=== PATIENT | female | born 1965 | race Caucasian/White ===

== ENCOUNTER 2017-02-23 06:26 | Outpatient (CLI) | payer OTHER ==
[~2017-02-23] VITALS: Ht 167.6 cm; Wt 86.2 kg
[2017-02-23] VITALS (11 sets, daily range): BP systolic 105–125; BP diastolic 72–87
[~2017-02-23 06:26] MED LIST: ASPI-482 PO; ATOR20TA PO; CHOL100013 PO; GLUC100018 PO; METO25TA4 PO; MULT1TAB52 PO
[2017-02-23] MEDS ORDERED: VIT1TABL32 PO (06:56)
[2017-02-23] MEDS ORDERED: CHONDROITIN MSM PO (06:58)
[2017-02-23] MEDS ORDERED: FISH1CAP PO (06:58)
[2017-02-23 07:08] LABS: CALCIUM 8.9 mg/dL (8.5-10.1); CREATININE 0.9 mg/dL (0.6-1.0); POTASSIUM 4.2 mmol/L (3.5-5.1)
[2017-02-23 07:09] LABS: HEMATOCRIT 40.6 % (36.0-47.0); HEMOGLOBIN 13.8 g/dL (12.0-15.5); RED BLOOD COUNT 4.3 x10^6/uL (3.50-5.40); RED CELL DISTRIBUTION WIDTH 13.9 % (11.5-14.5); WHITE BLOOD COUNT 6.1 x10^3/uL (4.0-11.0)
[2017-02-23] MEDS ORDERED: HEPARIN for ARTERIAL LINE 1,500 ML ONE (07:17)
[2017-02-23] MEDS ORDERED: IOHEXOL 300 MG/ML 100ML VIAL. ONE (07:17)
[2017-02-23] MEDS ORDERED: LIDOCAINE 2% 20 ML VIAL. ONE (07:19)
[2017-02-23 07:28] LABS: INR 1.1 (0.8-1.1); PROTHROMBIN TIME PATIENT 13.1 SEC (11.7-14.0)
[2017-02-23] MEDS ORDERED: fentaNYL PF VIAL 100 MCG/2 ML VIAL ONE (07:54)
[2017-02-23] MEDS ORDERED: MIDAZOLAM HCL/PF 2 MG/2 ML VIAL. ONE ×2 (07:55→08:18)
--- NOTE | 2017-02-23 08:07 | PDOC ---
MODERATE SEDATION ASSESSMENT RISKS/ALTERNATIVES Risks/Alternatives Risks and alternatives of this type of sedation and procedure discussed with: RISK/ALTERNATIVES: Patient H & P ON CHART H & P H & P on chart and reviewed for co-morbid conditions and appropriate labs. H&P ON CHART: Yes STATUS PREG STATUS ASSESSED: Yes MEDS/ALLERGIES REVIEWED Meds/Allergies Reviewed Medications and Allergies including time and route of recently administered narcotics and sedatives. MEDS/ALLERGIES REVIEWED: Yes ASA RATING ASA RATING: II AIRWAY ASSESSMENT Airway Assessment Airway patency, oral function limitations, presence of caps, crowns, dentures, partials, and ability to extend neck assessed. AIRWAY ASSESSMENT: Yes MALLAMPATI SCORE MALLAMPATI SCORE: II PRE-SEDATION ASSESSMENT PRE-SEDATION ASSESSMENT: Yes KANDY COPELAND MD Feb 23, 2017 08:07
[2017-02-23] MEDS ORDERED: fentaNYL PF VIAL 100 MCG/2 ML VIAL IV ONE (08:45)
[2017-02-23] MEDS ORDERED: IOHEXOL 300 MG/ML 100ML VIAL. IART ONE (08:45)
[2017-02-23] MEDS ORDERED: MIDAZOLAM HCL/PF 2 MG/2 ML VIAL. IV ONE (08:45)
[2017-02-23] MEDS ORDERED: LIDOCAINE 2% 20 ML VIAL. IJ ONE (08:45)
[2017-02-23] MEDS ORDERED: HEPARIN for IV BOLUS 10,000 UNIT/10 ML VIAL. ONE (08:50)
[2017-02-23] MEDS ORDERED: HEPARIN for IV BOLUS 10,000 UNIT/10 ML VIAL. IV ONE (09:00)
[2017-02-23] MEDS ORDERED: IV NORMAL SALINE 1000ML BAG 1,000 ML IV SCH (09:07)
[2017-02-23] MEDS ORDERED: NITROGLYCERIN SUBLINGUAL 0.4 MG BOTTLE OF 25. SL PRN (09:15)
[2017-02-23] MEDS ORDERED: 0.9 % SODIUM CHLORIDE 10 ML DISP.SYRIN. IV PRN (09:15)
--- NOTE | 2017-02-24 18:27 | CARD ---
APPROVED REPORT Procedures Left heart catheterization Left ventriculogram Selective coronary angiogram IFR measurement of the left circumflex vessel. The patient is a 52-year-old female with a history of coronary artery disease with a previous placed right coronary stent. She has had progressive episodes of increasing chest pain with exertion. Nucle ar stress testing was abnormal. Cardiac catheterization was recommended. Risks and benefits were disc ussed. The patient agreed to proceed with catheterization. After informed consent was obtained the patient was brought to the heart catheterization lab. The are a of the right femoral artery was prepared in the usual manner with Betadine, sterile draping and loc al anesthetic. An 18-gauge needle was used to enter the right femoral artery, a wire placed and a 6 F rench sheath placed over the wire. A 6 [place] JL4 diagnostic catheter was used to engage the left cor onary system and sequential injections in various views were obtained. A 6 [place] Eric right diag nostic catheter was used to engage the right coronary system and sequential injections in various vie ws were obtained. A pigtail catheter was advanced to the ascending aorta and then the left ventricle . A 30 LEWIS left ventricular gram was performed. Pullback pressures were measured. Review of the imag es showed a moderate mid left circumflex lesion. In the setting of her progressively increasing exert ional chest pain we proceeded to obtain a IFR measurement of this lesion. A 6 [place] JL4 guiding ca theter was used to engage the left coronary system after 1000 units of heparin were administered. An IFR wire was used to cross the lesion. Measurements were normal at 0.98. The wire and guiding system were removed. Injection of the sheath showed normal placement. The sheath was removed and sealed with an Angio-Seal product. The patient was then moved to the holding area. Findings. Hemodynamics. Left ventricular pressure of 114/22, aortic root pressure of 112/74. Coronaries. Left main. The left main had no lesions. Left anterior descending. The LAD was a moderate size vessel with normal distribution. In a proximal 10% lesion. Left circumflex. The left circumflex was a moderate size vessel. It had a proximal 20% lesion. It had a mid lesion of 35-40% by visual analysis. This leasion had a normal IFR measurement. Right coronary artery. The right coronary is a moderate size vessel. It a proximal 20% lesion. It has a widely patent mid stent. Left ventriculogram. The left ventricle showed normal systolic function with ejection fraction of 55%. <Conclusion> Mild coronary artery disease in the LAD. Moderate lesion in the left circumflex with normal IFR readings. Widely patent stent in the right coronary artery. No significant coronary artery lesions. Normal left ventricular systolic function.
== END 2017-02-23 12:30 | disposition home or self-care (01) ==
LOC: CCL 06:26
PROVIDERS: ATTEND Internal Medicine Cardiovascular Disease
DX: I25.10 Atherosclerotic heart disease of native coronary artery without angina pectoris (principal); F17.200 Nicotine dependence, unspecified, uncomplicated; Z90.710 Acquired absence of both cervix and uterus; Z87.39 Personal history of other diseases of the musculoskeletal system and connective tissue; Z88.8 Allergy status to other drugs, medicaments and biological substances
CPT/HCPCS: 36415; 80048; 85027; 85610; 93458; 93571; 99152; 99153; C1769; C1771; C1887; C1892; J1644; J2001; J2250; J3010; Q9967; G0269